=== PATIENT | female | born 1955 | race Caucasian/White ===

== ENCOUNTER 2018-11-03 20:10 | Inpatient (IN) | payer OTHER ==
[~2018-11-03] VITALS: Ht 121.9 cm; Wt 5.0 kg
[~2018-11-03 20:10] MED LIST: AMLODIPINE BESY10 MG PO; CLONAZEPAM0.5 MG PO; Cozaar PO; KEPPRA500 MG PO; KETO10TA2 PO; LOSARTAN POTASS50 MG; ORPH100T PO; PLAVIX75 MG PO; PREDNISONE20 MG PO; ZOLPIDEM TARTRAT5 MG PO
--- NOTE | 2018-11-03 20:36 | NUR ---
PT ALERTA Y ORIENTADA X3 ESFERAS REFIERE TUBO UN EPISODIO DE DESMAYO POR MAREO MIENTRAS ESTABA EVACUANDO. TRAIDA EN AMBULANCIA. PRESENTADA A DR MOON.
--- NOTE | 2018-11-03 22:32 | NUR ---
PT ALERTA, EN COMPANIA DE FAMILIAR. SE LE ORIENTA SOBRE TX Y REFIERE ENTEDER. SE NAKUL MUESTRAS DE VIRA CON TECNICAS ASEPTICAS. PT TOLERA [place].
--- NOTE | 2018-11-04 00:50 | NUR ---
AL PACIENTE SE LE COLOCA URINE BASIN AL PACIENTE PARA ORINAR Y COLECTAR MUESTRA DE ORINA. PACIENTE SE ORINA ENCIMA EN VEZ DE EL URINE BASIN. SE LE LIMPIA PACIENTE Y SE LE COLOCA BLUE PADS. SE INTENTARA DE NUEVO COLECTAR ORINA.
--- NOTE | 2018-11-04 07:26 | NUR ---
SE RECIBE PTE ALERTA Y ORIENTADO X3 EL CUAL SE OBSERVA EN REID CON BARANDAS ELEVADAS. PTE SE OBSERVA CON 0.9NSS BAJANDO A 125ML/HR. PTE AL MOMENTO CON 0 EN ESCALA DE DOLOR. PTE EN ESPERA DE CONSULTA CON MEDICINA INTERNA. PTE SE CONTINUA MONITORIANDO POR CAMBIOS.
[2018-11-09] MEDS ORDERED: KEFLEX500 MG PO (14:55)
[2018-11-09] MEDS ORDERED: FLUCONAZOLE100 MG PO (14:56)
== END 2018-11-09 16:09 | disposition home or self-care (01) | DRG 640 ==
LOC: ER 20:10 → MEDI 11-04 12:06 → MEDJ 11-04 12:06 → MEDI 11-09 11:58
PROVIDERS: ADMIT Internal Medicine
PROC: BW40ZZZ Ultrasonography of Abdomen (ICD-10-PCS; principal; 2018-11-04)
PROC: BW21ZZZ Computerized Tomography (CT Scan) of Abdomen and Pelvis (ICD-10-PCS; 2018-11-04)
PROC: BF37ZZZ Magnetic Resonance Imaging (MRI) of Pancreas (ICD-10-PCS; 2018-11-05)
DX: E87.1 Hypo-osmolality and hyponatremia (principal); I63.512 Cerebral infarction due to unspecified occlusion or stenosis of left middle cerebral artery; K85.80 Other acute pancreatitis without necrosis or infection; I67.4 Hypertensive encephalopathy; R65.10 Systemic inflammatory response syndrome (SIRS) of non-infectious origin without acute organ dysfunction; I69.351 Hemiplegia and hemiparesis following cerebral infarction affecting right dominant side; N39.0 Urinary tract infection, site not specified; G47.09 Other insomnia; I69.320 Aphasia following cerebral infarction; E78.00 Pure hypercholesterolemia, unspecified; D72.828 Other elevated white blood cell count; B96.29 Other Escherichia coli [E. coli] as the cause of diseases classified elsewhere; B96.1 Klebsiella pneumoniae [K. pneumoniae] as the cause of diseases classified elsewhere; I10 Essential (primary) hypertension

== ENCOUNTER 2021-03-05 10:37 | Outpatient (CLI) | payer OTHER ==
[~2021-03-05 10:37] MED LIST changes: +FLUCONAZOLE100 MG PO; +KEFLEX500 MG PO
== END 2021-03-05 10:40 | disposition home or self-care (01) ==
LOC: SONOGRAMA 10:37
PROVIDERS: ATTEND Pathology Anatomic Pathology & Clinical Pathology
DX: E04.1 Nontoxic single thyroid nodule (principal)